=== PATIENT | male | born 1955 | race Caucasian/White ===

== ENCOUNTER 2020-01-12 08:15 | Inpatient (IN) | payer BC ==
[2020-01-03 14:28] LABS: BASOPHILS # (AUTO) 0.1 X10'3 (0-0.2); BASOPHILS % (AUTO) 1.1 % (0-1); EOSINOPHILS # (AUTO) 0.2 X10'3 (0-0.9); EOSINOPHILS % (AUTO) 2.6 % (0-6); LYMPHOCYTES # (AUTO) 3.5 X10'3 (1.1-4.8); LYMPHOCYTES % (AUTO) 38.9 % (21-51); MEAN CORPUSCULAR HEMOGLOBIN 29.6 PG (27.0-31.0); MEAN CORPUSCULAR HGB CONC 33.4 g/dL (33.0-36.5); MEAN CORPUSCULAR VOLUME 88.5 FL (78-98); MONOCYTES # (AUTO) 0.8 X10'3 (0-0.9); MONOCYTES % (AUTO) 8.5 % (2-12); NEUTROPHILS # (AUTO) 4.4 X10'3 (1.8-7.7); NEUTROPHILS % (AUTO) 48.9 % (42-75); PRE OP HEMATOCRIT 45.6 % (42.0-52.0); PRE OP HEMOGLOBIN 15.2 g/dL (14.0-17.9); PRE OP PLATELET COUNT 337 X10'3 (140-440); RED BLOOD COUNT 5.15 X10'6 (4.70-6.10); RED CELL DISTRIBUTION WIDTH 14.4 % (11.5-14.5)
[2020-01-03 14:45] LABS: ALBUMIN 4.3 G/DL (3.4-5.0); ALBUMIN/GLOBULIN RATIO 1.4 (1.1-1.5); ALKALINE PHOSPHATASE 56 IU/L (46-116); BLOOD UREA NITROGEN 20 MG/DL (7-18); BUN/CREATININE RATIO 18.5 (5.4-32.0); CALCIUM 9.2 MG/DL (8.5-10.1); CHLORIDE 104 MMOL/L (99-107); CREATININE 1.08 MG/DL (0.60-1.10); PRE OP ALT 74 U/L (30-65); PRE OP ANION GAP 7 (8-16); PRE OP AST 30 U/L (10-37); PRE OP BILIRUB, TOTAL 0.3 MG/DL (0.0-1.0); PRE OP GLUCOSE 89 MG/DL (70-104); PRE OP POTASSIUM 4.1 MMOL/L (3.4-5.1); PRE OP SODIUM 140 MMOL/L (135-145); TOTAL CARBON DIOXIDE 29.1 MMOL/L (24-32); TOTAL PROTEIN 7.3 G/DL (6.4-8.2); eGFR 69 ML/MIN
[2020-01-12] VITALS (22 sets, daily range): BP systolic 106–143; BP diastolic 56–94
[~2020-01-12] VITALS: Ht 167.6 cm; Wt 91.2 kg
[~2020-01-12 08:15] MED LIST: CLON-473 PO; HYDR-3972 PO; LISI1TAB32 PO; TEMA30CA PO; ceFAZolin 2gm in dextrose, iso 50 ML IV ONE; famotidine 20mg tablet PO ONE; ringers solution, lacted 1,000 ML IV SCH; tranexamic acid inj. 910 MG in normal saline 100ml IV soln 100 ML IV ONE; vancomycin 1,500 MG in NS 500ml IV soln IV ONE
[2020-01-12] MEDS ORDERED: ringers solution, lacted 1,000 ML IV SCH (08:56)
[2020-01-12] MEDS ORDERED: morphine 4 MG/ML inj SYRINge IV PRN (09:00)
[2020-01-12] MEDS ORDERED: ondansetron/PF 4mg/2ml inj IV PRN ×2 (09:00→13:10)
[2020-01-12] MEDS ORDERED: meperidine/PF 25mg/ml syringe IV PRN ×3 (09:00)
[2020-01-12] MEDS ORDERED: morphine 2 MG/ML inj. syringe IV PRN (09:00)
[2020-01-12] MEDS ORDERED: proCHLORperazine 10 MG/2 ml inj IV PRN (09:00)
[2020-01-12] MEDS ORDERED: ROPIVAcaine 0.5% (5mg/ml) 30ml vial ONE ×2 (09:45→11:07)
[2020-01-12] MEDS ORDERED: ketorolac trometh. 30mg/ml inj. ONE (09:45)
[2020-01-12] MEDS ORDERED: fentaNYL/PF 50MCG/1 ML 2ML syringe ONE (10:15)
[2020-01-12] MEDS ORDERED: MIDAZolam 5mg/5ml vial ONE (10:15)
[2020-01-12] MEDS ORDERED: sevoflurane 250ml liquid IH ONE (10:32)
[2020-01-12] MEDS ORDERED: LIDOcaine 2% (20mg/ml) 5ml vial ONE (10:57)
[2020-01-12] MEDS ORDERED: propofol inj 20 ML IV ONE (11:11)
[2020-01-12] MEDS ORDERED: ondansetron/PF 4mg/2ml inj ONE (11:12)
[2020-01-12] MEDS ORDERED: ROPIVAcaine 0.2%/PF PUMP/bolus 550 ML INTERSCALE SCH (11:46)
[2020-01-12] MEDS ORDERED: ROPIVAcaine 0.2% (10 MG/5 ML) BOLUS INJECTION INTERSCALE PRN (11:50)
--- NOTE | 2020-01-12 12:57 | NUR ---
Received from OR via ortho bed, accompanied by Anesthesiologist Trip and report given by Anesthesiolgist. Mask to 10L and sats 98% all other VS stable. Right shoulder island dressing, catheter site present for ON-Q ball, shoulder in sling with cold pack present. Fingers have good cap refill. Pt responding to questions. 18G present to left forearm.
[2020-01-12] MEDS ORDERED: acetaminophen 325mg tablet PO PRN (13:10)
[2020-01-12] MEDS ORDERED: HYDROmorphone inj. 0.5 MG/0.5 ML DISP.SYRIN IV PRN (13:10)
[2020-01-12] MEDS ORDERED: oxyCODONE IR 5mg (immed. release) tablet PO PRN (13:10)
[2020-01-12] MEDS ORDERED: magnesium hydroxide 30ml (MOM) UD suspension PO PRN (13:10)
[2020-01-12] MEDS ORDERED: bisacodyl 10mg suppository rectal RC PRN (13:10)
[2020-01-12] MEDS ORDERED: diphenhydrAMINE 25mg capsule PO PRN ×2 (13:10)
[2020-01-12] MEDS ORDERED: HYDROmorphone 1 mg/ml syringe IV PRN (13:10)
[2020-01-12] MEDS: acetaminophen 325mg tablet PO SCH ×2 (14:00→19:43)
--- NOTE | 2020-01-12 14:07 | NUR ---
Report called to receiving nurse. Transferred via ortho bed. Belongings sent with patient. Reading glasses included. Special Issues communicated to receiving nurse Lisa CROOKS wo was at bedside to receive patient. BLL and call light within reach, chart at bedside and pt aware of trasnfer to room 358A.
--- NOTE | 2020-01-12 14:15 | NUR ---
ASSUMED CARE, RECEIVED REPORT FROM TU CROOKS. POST OP VS STARTED, PATIENT RESTING COMFORTABLY, WILL CONTINUE TO MONITOR.
[2020-01-12] MEDS ORDERED: tranexamic acid inj. 910 MG in normal saline 100ml IV soln 100 ML IV ONE (16:00)
[2020-01-12] MEDS: ceFAZolin 1GM/D5W- ADD-VANTAGE 50 ML IV SCH (16:16)
[2020-01-12] MEDS: potassium cl 20mEq in 1/2 NS 1,000 ML IV SCH ×2 (16:26→21:07)
--- NOTE | 2020-01-12 18:05 | NUR ---
Problems reprioritized. Patient report given, questions answered & plan of care reviewed with RAY CROOKS.
--- NOTE | 2020-01-12 18:18 | NUR ---
Patient in room [facility]. I have received report from Ayleen CROOKS and had the opportunity to ask questions and assume patient care.
[2020-01-12] MEDS ORDERED: vancomycin/NS 1 GM ADD-VANTAGE 250 ML IV SCH (20:00)
[2020-01-12] MEDS ORDERED: sennosides 8.6mg tablet PO SCH (21:00)
[2020-01-13] VITALS: BP 113/69
[2020-01-13] MEDS: ceFAZolin 1GM/D5W- ADD-VANTAGE 50 ML IV SCH (00:03)
[2020-01-13] MEDS: oxyCODONE IR 5mg (immed. release) tablet PO PRN ×2 (00:13→10:12)
[2020-01-13] MEDS: acetaminophen 325mg tablet PO SCH ×2 (02:14→06:47)
[2020-01-13] MEDS: potassium cl 20mEq in 1/2 NS 1,000 ML IV SCH (03:53)
--- NOTE | 2020-01-13 06:18 | NUR ---
Problems reprioritized. Patient report given, questions answered & plan of care reviewed with Freeman CROOKS.
--- NOTE | 2020-01-13 06:20 | NUR ---
Patient in room [facility]. I have received report from RAY CROOKS and had the opportunity to ask questions and assume patient care.
[2020-01-13 08:00] VITALS: BP 128/85
[2020-01-13 08:10] LABS: BASOPHILS % (AUTO) 0.1 % (0-1); EOSINOPHILS % (AUTO) 0 % (0-6); HEMATOCRIT 39.6 % (42.0-52.0); HEMOGLOBIN 13.4 g/dl (14.0-17.9); LYMPHOCYTES # (AUTO) 1.4 X10'3 (1.1-4.8); LYMPHOCYTES % (AUTO) 11.3 % (21-51); MEAN CORPUSCULAR HGB CONC 33.8 g/dL (33.0-36.5); MEAN CORPUSCULAR VOLUME 88.5 FL (78-98); MEAN PLATELET VOLUME 8.2 FL (7.4-10.4); MONOCYTES # (AUTO) 1.3 X10'3 (0-0.9); MONOCYTES % (AUTO) 10.7 % (2-12); NEUTROPHILS # (AUTO) 9.8 X10'3 (1.8-7.7); NEUTROPHILS % (AUTO) 77.9 % (42-75); PLATELET COUNT 336 X10'3 (140-440); RED BLOOD COUNT 4.47 X10'6 (4.70-6.10); RED CELL DISTRIBUTION WIDTH 14.1 % (11.5-14.5); WHITE BLOOD COUNT 12.6 X10'3 (4.5-11.0)
[2020-01-13] MEDS ORDERED: aspirin 325mg tablet PO SCH (08:30)
[2020-01-13 08:35] LABS: ANION GAP 9 (8-16); CHLORIDE 105 MMOL/L (99-107); POTASSIUM 3.9 MMOL/L (3.5-5.1); SODIUM 139 MMOL/L (135-145); TOTAL CARBON DIOXIDE 25.2 MMOL/L (24-32)
--- NOTE | 2020-01-13 10:25 | NUR ---
PATIENT DISCHARGED SAFELY WITH S/O AND ALL BELONGINGS IN POSSESSION. PATIENT STATED BEFORE DC THAT HE CANNOT TOLERATE THE [place] PAIN PILLS HE HAS AT HOME. I LEFT A MESSAGE WITH DR MAGDALENO [facility] [place] PATIENT VERBALIZES UNDERSTANDING OF ALL DC INSTRUCTIONS.
[2020-01-13] MEDS ORDERED: celeCOXIB 100mg capsule PO SCH (20:00)
[2020-01-14] MEDS ORDERED: acetaminophen 325mg tablet PO PRN (13:10)
== END 2020-01-13 10:30 | disposition home or self-care (01) | DRG 483 ==
LOC: PAS IN 08:15 → EDSTATUS 10:15 → SUR 3N 13:07
PROVIDERS: ADMIT Orthopaedic Surgery; ATTEND Orthopaedic Surgery
PROC: 0LS30ZZ Reposition Right Upper Arm Tendon, Open Approach (ICD-10-PCS; 2020-01-12)
PROC: 3E0T3BZ Introduction of Anesthetic Agent into Peripheral Nerves and Plexi, Percutaneous Approach (ICD-10-PCS; 2020-01-12)
PROC: 0RRJ0JZ Replacement of Right Shoulder Joint with Synthetic Substitute, Open Approach (ICD-10-PCS; principal; 2020-01-12 10:32)
DX: M19.011 Primary osteoarthritis, right shoulder (principal); D62 Acute posthemorrhagic anemia; M25.511 Pain in right shoulder; M75.121 Complete rotator cuff tear or rupture of right shoulder, not specified as traumatic; I10 Essential (primary) hypertension; M65.811 Other synovitis and tenosynovitis, right shoulder; Z88.5 Allergy status to narcotic agent; Z79.899 Other long term (current) drug therapy
CPT/HCPCS: Z7506; Z7508; 36415; 80051; 80053; 82948; 85025; 87081; 87635; 97161; 97530; A4565; A4618; A7000; C1776; G0378; J0690; J1885; J2001; J2250; J2405; J2704; J2795; J3010; J3370; J3480; J7040; J7120; Q0163

== ENCOUNTER 2020-08-01 05:27 | Day surgery (SDC) | payer BC, SELFPAY ==
[2020-07-25 15:44] LABS: BASOPHILS # (AUTO) 0.1 X10'3 (0-0.2); BASOPHILS % (AUTO) 1.5 % (0-1); EOSINOPHILS # (AUTO) 0.2 X10'3 (0-0.9); EOSINOPHILS % (AUTO) 3.4 % (0-6); LYMPHOCYTES # (AUTO) 2.7 X10'3 (1.1-4.8); LYMPHOCYTES % (AUTO) 37.5 % (21-51); MEAN CORPUSCULAR HEMOGLOBIN 29.1 PG (27.0-31.0); MEAN CORPUSCULAR HGB CONC 33.3 g/dL (33.0-36.5); MEAN CORPUSCULAR VOLUME 87.5 FL (78-98); MEAN PLATELET VOLUME 8.3 FL (7.4-10.4); MONOCYTES # (AUTO) 0.7 X10'3 (0-0.9); MONOCYTES % (AUTO) 10.4 % (2-12); NEUTROPHILS # (AUTO) 3.3 X10'3 (1.8-7.7); NEUTROPHILS % (AUTO) 47.2 % (42-75); PRE OP HEMATOCRIT 40.7 % (42.0-52.0); PRE OP HEMOGLOBIN 13.5 g/dL (14.0-17.9); PRE OP PLATELET COUNT 283 X10'3 (140-440); RED BLOOD COUNT 4.65 X10'6 (4.70-6.10); RED CELL DISTRIBUTION WIDTH 15.1 % (11.5-14.5)
[2020-07-25 16:00] LABS: ALBUMIN 3.6 G/DL (3.4-5.0); ALBUMIN/GLOBULIN RATIO 1.2 (1.1-1.5); ALKALINE PHOSPHATASE 60 IU/L (46-116); BLOOD UREA NITROGEN 23 MG/DL (7-18); BUN/CREATININE RATIO 21.7 (5.4-32.0); CALCIUM 8.5 MG/DL (8.5-10.1); CHLORIDE 105 MMOL/L (99-107); CREATININE 1.06 MG/DL (0.60-1.10); PRE OP ALT 40 U/L (30-65); PRE OP ANION GAP 7 (8-16); PRE OP AST 19 U/L (10-37); PRE OP BILIRUB, TOTAL 0.2 MG/DL (0.0-1.0); PRE OP GLUCOSE 109 MG/DL (70-104); PRE OP POTASSIUM 4.2 MMOL/L (3.4-5.1); PRE OP SODIUM 138 MMOL/L (135-145); TOTAL CARBON DIOXIDE 25.8 MMOL/L (24-32); TOTAL PROTEIN 6.5 G/DL (6.4-8.2); eGFR 71 ML/MIN
[~2020-08-01] VITALS: Ht 167.6 cm; Wt 90.7 kg
[2020-08-01] VITALS (9 sets, daily range): BP systolic 109–130; BP diastolic 62–78
[~2020-08-01 05:27] MED LIST changes: -ceFAZolin 2gm in dextrose, iso 50 ML IV ONE; -famotidine 20mg tablet PO ONE; -tranexamic acid inj. 910 MG in normal saline 100ml IV soln 100 ML IV ONE; -vancomycin 1,500 MG in NS 500ml IV soln IV ONE
[2020-08-01] MEDS ORDERED: vancomycin 1,500 MG in NS 300ml IV soln IV ONE (05:30)
[2020-08-01] MEDS ORDERED: famotidine 20mg tablet PO ONE (05:30)
[2020-08-01] MEDS ORDERED: ceFAZolin 2gm in dextrose, iso 50 ML IV ONE (05:30)
[2020-08-01] MEDS ORDERED: BUPIVAcaine 0.25% w/Epi /PF 30ml vial ONE (06:54)
[2020-08-01] MEDS ORDERED: BUPIVAcaine/PF 2.5 mg/ml (0.25%) 30ml vial ONE (06:54)
[2020-08-01] MEDS ORDERED: LIDOcaine 0.5% (5mg/ml) 50ml vial ONE (06:56)
[2020-08-01] MEDS ORDERED: propofol 10mg/ml 20ml vial IV ONE (06:57)
[2020-08-01] MEDS ORDERED: fentaNYL/PF 50MCG/1 ML 2ML syringe ONE (07:06)
[2020-08-01] MEDS ORDERED: midazolam 2 mg/2 ml injection ONE (07:06)
--- NOTE | 2020-08-01 07:30 | NUR ---
Received from OR via [facility], accompanied by Anesthesiologist REIGNE and report given by Anesthesiolgist. NO RESP DISTRESS, VSS, IV PATENT. SKIN WARM, DRY. FINGERS MOVE WELL. WARM, AND CAP REFILLS BRISK.
[2020-08-01] MEDS ORDERED: hydrALAZINE 20mg/ml inj. IV PRN (07:35)
[2020-08-01] MEDS ORDERED: ringers solution, lacted 1,000 ML IV SCH (07:35)
[2020-08-01] MEDS ORDERED: meperidine/PF 25mg/ml syringe IV PRN ×3 (07:35)
[2020-08-01] MEDS ORDERED: ondansetron/PF 4mg/2ml inj IV PRN (07:35)
[2020-08-01] MEDS ORDERED: morphine 4 MG/ML inj SYRINge IV PRN (07:35)
[2020-08-01] MEDS ORDERED: labetalol 20mg/4ml (5mg/ml) syringe IV PRN (07:35)
[2020-08-01] MEDS ORDERED: morphine 2 MG/ML inj. syringe IV PRN (07:35)
[2020-08-01] MEDS ORDERED: proCHLORperazine 10 MG/2 ml inj IV PRN (07:35)
[2020-08-01] MEDS ORDERED: HYDROcodone/acetaminophen 10/325mg tab PO PRN (08:00)
--- NOTE | 2020-08-01 08:30 | NUR ---
DOING VERY WELL. READIED FOR DISCHARGE.
--- NOTE | 2020-08-01 08:40 | NUR ---
DC TO HOME. ALL QUESTIONS ANSWERED, STATES UNDERSTANDS. DRIVING.NO PAIN, VSS,IV OUT. SANDOVAL. NO COMPLAINTS OF PAIN OR OTHERWISE.
== END 2020-08-01 08:40 | disposition home or self-care (01) ==
LOC: PAS 05:27
PROVIDERS: ATTEND Orthopaedic Surgery
DX: G56.01 Carpal tunnel syndrome, right upper limb (principal); I10 Essential (primary) hypertension; F41.9 Anxiety disorder, unspecified; E66.9 Obesity, unspecified; Z68.31 Body mass index [BMI] 31.0-31.9, adult; Z79.01 Long term (current) use of anticoagulants; Z20.828 Contact with and (suspected) exposure to other viral communicable diseases; Z79.899 Other long term (current) drug therapy; Z88.5 Allergy status to narcotic agent; Z72.89 Other problems related to lifestyle; Z96.611 Presence of right artificial shoulder joint; Z98.890 Other specified postprocedural states
CPT/HCPCS: 36415; 64721; 80053; 82948; 85025; 87635; 93005; A6222; J2001; J2250; J2704; J3010; J3490; J7120; A4215; A4618; A6449; A6455; A7000; J3370; J7040

== ENCOUNTER 2023-07-21 07:38 | Outpatient (CLI) | payer MEDICARE, BC ==
[~2023-07-21 07:38] MED LIST changes: -LISI1TAB32 PO; +LISI1TAB49 PO; -ringers solution, lacted 1,000 ML IV SCH
[2023-07-21 08:05] LABS: BASOPHILS # (AUTO) 0.1 X10'3 (0-0.2); EOSINOPHILS # (AUTO) 0.2 X10'3 (0-0.9); HEMATOCRIT 38.7 % (42.0-52.0); HEMOGLOBIN 12.7 g/dl (14.0-17.9); LYMPHOCYTES # (AUTO) 2.4 X10'3 (1.1-4.8); LYMPHOCYTES % (AUTO) 29.3 % (21-51); MEAN CORPUSCULAR HGB CONC 32.8 g/dL (33.0-36.5); MEAN CORPUSCULAR VOLUME 85.3 FL (78-98); MEAN PLATELET VOLUME 7.6 FL (7.4-10.4); MONOCYTES # (AUTO) 0.8 X10'3 (0-0.9); MONOCYTES % (AUTO) 9.6 % (2-12); NEUTROPHILS # (AUTO) 4.7 X10'3 (1.8-7.7); NEUTROPHILS % (AUTO) 58.1 % (42-75); PLATELET COUNT 344 X10'3 (140-440); RED BLOOD COUNT 4.54 X10'6 (4.70-6.10); RED CELL DISTRIBUTION WIDTH 15.5 % (11.5-14.5); WHITE BLOOD COUNT 8.1 X10'3 (4.5-11.0)
[2023-07-21] MEDS ORDERED: iohexol 350MG/ML 100ml bottle IV ONE (08:05)
[2023-07-21 08:19] LABS: APTT 34 SECONDS (22-32); INR 1.1 INR; PROTHROMBIN TIME 12.1 SECONDS (9.0-12.0)
[2023-07-21 08:21] LABS: ALANINE AMINOTRANSFERASE 46 U/L (12-78); ALBUMIN 3.7 G/DL (3.4-5.0); ALBUMIN/GLOBULIN RATIO 1.1 (1.1-1.5); ALKALINE PHOSPHATASE 94 IU/L (46-116); ANION GAP 8 (8-16); ASPARTATE AMINO TRANSFERASE 32 U/L (10-37); BILIRUBIN,TOTAL 0.3 MG/DL (0.1-1.0); BLOOD UREA NITROGEN 16 MG/DL (7-18); BUN/CREATININE RATIO 18.2 (10.0-20.0); CALCIUM 8.8 MG/DL (8.5-10.1); CHLORIDE 101 MMOL/L (99-107); CREATININE 0.88 MG/DL (0.60-1.10); GLUCOSE 110 MG/DL (70-104); POTASSIUM 3.3 MMOL/L (3.5-5.1); SODIUM 137 MMOL/L (135-145); TOTAL PROTEIN 7.2 G/DL (6.4-8.2); eGFR 87 ML/MIN
[2023-07-27] MEDS ORDERED: VITAMIN K (16:28)
[2023-07-27] MEDS ORDERED: TIZA2CAP PO (16:28)
[2023-07-27] MEDS ORDERED: PARO20TA6 PO (16:28)
[2023-07-27] MEDS ORDERED: ATOR40TA PO (16:28)
[2023-07-27] MEDS ORDERED: OMEP40CA21 PO (16:28)
[2023-07-27] MEDS ORDERED: RIVA2.5T PO (16:28)
[2023-07-27] MEDS ORDERED: LOSA-415 PO (16:28)
[2023-07-27] MEDS ORDERED: AMLO2.5T2 PO (16:29)
[2023-07-28] MEDS ORDERED: AMLO10TA PO (11:23)
[2023-07-28] MEDS ORDERED: RIVA20TA PO (12:47)
[2023-07-28] MEDS ORDERED: LOSA1TAB39 PO (12:47)
== END 2023-07-21 23:59 | disposition home or self-care (01) ==
LOC: RAD 07:38
PROVIDERS: ATTEND Student in an Organized Health Care Education/Training Program
DX: I48.91 Unspecified atrial fibrillation (principal); I48.92 Unspecified atrial flutter; I25.10 Atherosclerotic heart disease of native coronary artery without angina pectoris
CPT/HCPCS: 36415; 75572; 80053; 85025; 85610; 85730; J3490; Q9967; 70496